=== PATIENT | female | born 1990 | race Caucasian/White ===

== ENCOUNTER 2017-08-18 04:56 | Inpatient (IN) ==
[2017-08-18] MEDS ORDERED: ONDANSETRON 4 MG/2 ML VIAL IV PRN ×2 (05:07→11:44)
[2017-08-18] MEDS ORDERED: MEPERIDINE 50 MG/1 ML VIAL IM PRN (05:07)
[2017-08-18] MEDS ORDERED: BUTORPHANOL 2 MG/ML VIAL IV PRN (05:07)
[2017-08-18] MEDS ORDERED: FAMOTIDINE 20 MG/2 ML VIAL IV PRN (05:07)
[2017-08-18] MEDS ORDERED: LACTATED RINGERS 1,000 ML IV SCH (05:30)
[2017-08-18] MEDS ORDERED: OXYTOCIN/LR 20 UNIT/1,000 ML BAG IV SCH (05:30)
[2017-08-18 06:07] LABS: Basophils % 0.2 % (0.0-0.8); Eosinophils # 0.1 10*3/uL (0.0-0.87); Eosinophils % 0.7 % (0.00-10.9); Hematocrit 28.9 VOL% (35.7-47.0); Hemoglobin 9.4 GM/DL (12.0-16.0); Immature Granulocytes % 1.3 %; Lymphocytes # 3.5 10*3/uL (1.4-4.0); Lymphocytes % 23.3 % (21.3-54.2); Mean Corpuscular HGB Conc 32.5 GM/DL (32-36); Mean Corpuscular Hemoglobin 22 PG (27-34); Mean Platelet Volume 11.6 FL (9.6-12.0); Monocytes # 1.5 10*3/uL (0.11-0.8); Monocytes % 9.8 % (1.7-12.7); Neutrophils # 9.8 10*3/uL (1.4-7.4); Neutrophils % 64.7 % (38.7-73.9); Platelet Count 210 T/CUMM (130-400); Red Blood Count 4.19 MC/CUMM (3.8-5.5); Red Cell Distribution Width 14.6 % (9.3-17.3); White Blood Count 15.1 T/CUMM (4-12)
[2017-08-18 06:44] LABS: Albumin 2.9 G/DL (3.4-5.0); Bilirubin,Total 0.8 MG/DL (0.2-1.0); Calcium 8.2 MG/DL (8.5-10.1); Osmolality,Calculated 275.4 MOS/KG (273-304); Potassium 3.6 MMOL/L (3.5-5.1); Total Protein 6.1 G/DL (6.4-8.3)
[2017-08-18] MEDS ORDERED: diphenhydrAMINE 50 MG/1 ML VIAL IV PRN ×2 (08:48)
[2017-08-18] MEDS ORDERED: ePHEDrine 50 MG/ML AMP IV PRN (08:48)
[2017-08-18] MEDS ORDERED: CITRIC ACID/SODIUM CITRATE 30 ML UDCUP PO ONE (08:48)
[2017-08-18] MEDS ORDERED: PROMETHAZINE 25 MG/1 ML VIAL IM ONE (08:48)
[2017-08-18] MEDS ORDERED: LACTATED RINGERS 1,000 ML IV ONE (08:48)
[2017-08-18] MEDS ORDERED: hydrOXYzine HCL 25 MG/1 ML VIAL IM PRN (08:48)
[2017-08-18] MEDS ORDERED: fentaNYL 2 MCG/ROPIV 0.2% EPID 150 ML EPIDURAL SCH (09:00)
[2017-08-18 10:51] LABS: Apearance,Urine Clear (Clear); Bilirubin,Urine Negative (Negative); Blood, Urine Negative (Negative); Glucose,Urine (UA) Negative (Negative); Ketones,Urine Negative (Negative); Nitrite,Urine Negative (Negative); Protein,Urine Negative; Urine Color Yellow (Yellow); Urine Urobilinogen 0.2 EU/DL (0.2-1.0)
[2017-08-18] MEDS ORDERED: LIDOCAINE 1% 50 ML VIAL ONE (11:25)
[2017-08-18] MEDS ORDERED: miSOPROStol 200 MCG TABLET ONE (11:26)
[2017-08-18] MEDS ORDERED: MEPERIDINE 50 MG/1 ML VIAL IV ONE (11:38)
[2017-08-18] MEDS ORDERED: BISACODYL 10 MG SUPP RECTAL PRN (11:44)
[2017-08-18] MEDS ORDERED: WITCH HAZEL PADS 100/JAR TOP PRN (11:44)
[2017-08-18] MEDS ORDERED: HYDROCORTISONE 2.5% RECTAL CREAM 30 GM TUBE TOP PRN (11:44)
[2017-08-18] MEDS ORDERED: OXYTOCIN/LR 20 UNIT/1,000 ML BAG IV ONE (11:44)
[2017-08-18] MEDS ORDERED: oxyCODONE/ACETAMINOPHEN 5-325 MG TABLET PO PRN (11:44)
[2017-08-18] MEDS ORDERED: LANOLIN 50% CREAM 0.3 OZ TUBE TOP PRN (11:44)
[2017-08-18] MEDS ORDERED: BENZOCAINE 20%/MENTHOL 0.5% SPRAY 56 GM CAN TOP PRN (11:44)
[2017-08-18] MEDS ORDERED: ACETAMINOPHEN 325 MG TABLET PO PRN (11:44)
[2017-08-18] MEDS ORDERED: RHO(D) IMMUNE GLOBULIN 300 MCG SYRINGE IM ONE (12:00)
[2017-08-18] MEDS ORDERED: DIPH/TET/ACEL PERT BOOSTER VACCINE 0.5 ML VIAL IM ONE (12:00)
[2017-08-18] MEDS ORDERED: MEASLES/MUMPS/RUBELLA VACCINE 0.5 ML VIAL SUBCUT ONE (12:00)
[2017-08-18] MEDS: IBUPROFEN 800 MG TABLET PO PRN (17:47)
[2017-08-18] MEDS: DOCUSATE SODIUM 100 MG CAPSULE PO SCH (20:13)
[2017-08-19] MEDS: IBUPROFEN 800 MG TABLET PO PRN ×3 (03:47→22:27)
[2017-08-19] MEDS: oxyCODONE/ACETAMINOPHEN 5-325 MG TABLET PO PRN ×2 (03:47→16:16)
[2017-08-19 06:58] LABS: Basophils % 0.2 % (0.0-0.8); Eosinophils # 0.1 10*3/uL (0.0-0.87); Eosinophils % 0.5 % (0.00-10.9); Hemoglobin 8.3 GM/DL (12.0-16.0); Immature Granulocytes % 1.5 %; Lymphocytes # 1.9 10*3/uL (1.4-4.0); Mean Corpuscular HGB Conc 31.9 GM/DL (32-36); Mean Corpuscular Hemoglobin 22 PG (27-34); Mean Corpuscular Volume 69.5 FL (87-102); Mean Platelet Volume 11.7 FL (9.6-12.0); Monocytes # 1.2 10*3/uL (0.11-0.8); Monocytes % 9.1 % (1.7-12.7); Neutrophils # 10.1 10*3/uL (1.4-7.4); Neutrophils % 74.7 % (38.7-73.9); Platelet Count 202 T/CUMM (130-400); Red Blood Count 3.74 MC/CUMM (3.8-5.5); Red Cell Distribution Width 14.3 % (9.3-17.3); White Blood Count 13.5 T/CUMM (4-12)
[2017-08-19] MEDS ORDERED: FERROUS SULFATE 325 MG TABLET PO SCH (09:00)
[2017-08-19] MEDS: DOCUSATE SODIUM 100 MG CAPSULE PO SCH ×2 (09:49→20:46)
[2017-08-19] MEDS ORDERED: MEPERIDINE 25 MG/1 ML VIAL IM ONE (16:47)
[2017-08-19] MEDS ORDERED: PROMETHAZINE 25 MG/1 ML VIAL IM ONE (16:47)
[2017-08-19] MEDS ORDERED: MEPERIDINE 25 MG/1 ML VIAL ONE (16:52)
[2017-08-19] MEDS ORDERED: PROMETHAZINE 25 MG/1 ML VIAL ONE (16:52)
[2017-08-20] MEDS: oxyCODONE/ACETAMINOPHEN 5-325 MG TABLET PO PRN (03:46)
[2017-08-20] MEDS: DOCUSATE SODIUM 100 MG CAPSULE PO SCH (07:56)
[2017-08-20] MEDS: IBUPROFEN 800 MG TABLET PO PRN (07:56)
[2017-08-20 08:10] VITALS: BP 137/89
== END 2017-08-20 11:10 | disposition home or self-care (01) | DRG 775 ==
LOC: N.LDOUT 04:56 → N.LD 05:00 → N.OB 15:43
PROVIDERS: ADMIT Specialist; ATTEND Specialist